=== PATIENT | female | born 1955 | race Caucasian/White ===

== ENCOUNTER 2020-01-14 09:10 | Emergency (ER) | payer BC, SELFPAY ==
[2020-01-14 09:23] VITALS: BP 164/83; PULSE 76; RESP 16; TEMP 37.1; O2SAT 96
--- NOTE | 2020-01-14 09:30 | ED.GENADULT ---
HPI - General Adult General Chief complaint: Skin/Abscess/Foreign Body Stated complaint: Toe discoloration Time Seen by Provider: 01/14/20 09:31 Source: patient and RN notes reviewed Mode of arrival: ambulatory Limitations: no limitations History of Present Illness HPI narrative: 64-year-old female presents with complaints of left 2nd toenail discoloration for the past 2 months. No treatment. Noemy says she initially did not seek care because she believed she stubbed her toe. Symptoms increased yesterday when she noticed the 3rd toenail had discoloration to the toenail also. No drainage or pain. No pain with weight bearing. No numbness, tingling, or loss of mobility. No exacerbating factors that she can recall. Denies inability to bear weight. Denies suspect foreign body. Postmenopausal. Remains active. The patient reports she have not been diagnosed with COVID-19. The patient reports she is not waiting for the results of a COVID-19 lab test. The patient reports she do not have fever, chills, weakness, fatigue, or myalgia. The patient reports she do not have a new or worsening cough or shortness of breath. Denies chest pain. The patient reports she do not have any rhinorrhea, congestion, sore throat, nausea, vomiting, abdominal pain, and diarrhea. Tolerating po intake well. Denies recent traveling. Denies concerns for COVID-19 or exposures been home with limited outdoor exposure except for essential household needs, work, and return home. At this time, patient is not suspected of having COVID-19. Some parts of this dictation were generated by voice recognition software and may contain typographical and/or grammatical inaccuracies. Related Data Home Medications Medication Instructions Recorded Confirmed atorvastatin [Lipitor] 20 mg PO DAILY 01/14/20 01/14/20 metoprolol succinate [Toprol XL] 25 mg PO DAILY 01/14/20 01/14/20 omeprazole magnesium [Prilosec OTC] 20 mg PO EVERY OTHER DAY 01/14/20 01/14/20 Allergies Allergy/AdvReac Type Severity Reaction Status Date / Time Penicillins Allergy Severe THROAT Verified 01/14/20 09:28 GAMALIEL Review of Systems Review of Systems: Narrative: CONSTITUTIONAL: Denies fever, chills, sweats. EYES: Denies visual changes, redness, discharge. ENT: Denies rhinorrhea, congestion, sore throat, otalgia. CARDIOVASCULAR: Denies chest pain, palpitations, edema. RESPIRATORY: Denies dyspnea, wheezing, cough. GASTROINTESTINAL: Denies abdominal pain, nausea, vomiting, diarrhea. GENITOURINARY: Denies dysuria, hematuria, abnormal discharge. SKIN: Denies rash or itching. MUSCULOSKELETAL: Denies acute back pain or myalgia. Complains of left 2nd and 3rd toenail discoloration. NEUROLOGIC: Denies numbness or focal weakness. PSYCHIATRIC: Denies anxiety or depression. All systems reviewed & are unremarkable except as noted in HPI and below. [facility] Past Medical History Medical History (Updated 01/15/20 @ 00:00 by Austin Daeloy) delivery delivered History of gastroesophageal reflux (GERD) Hypercholesteremia Hypertension Postmenopausal Surgical History Surgical History (Updated 01/14/20 @ 09:52 by GRETA Pena) H/O section Family History Family History (Updated 01/14/20 @ 09:52 by GRETA Pena) Father , [place] at 79 No problems noted. Mother Diabetes mellitus, Onset Age: 80 Social History Social History (Updated 01/14/20 @ 09:53 by GRETA Pena) Smoking status: Never smoker Second hand tobacco smoke exposure: No Alcohol intake: never Substance use: never Occupation/Education: occupation Gender identity (if verbalized by the patient): Female Comments At time of signature, agree with nurse past medical, surgical, social, and family history. There is no relevant family history pertinent to the presenting complaint. Exam Narrative: Exam Narrative: GENERAL: This is a well-nourished, well-dev
== END 2020-01-14 09:53 | disposition home or self-care (01) ==
PROVIDERS: Emergency Provider Nurse Practitioner Family
DX: B35.1 Tinea unguium (principal)
CPT/HCPCS: 99213; G0463

== ENCOUNTER 2021-01-26 01:22 | Emergency (ER) | payer BC, SELFPAY ==
--- NOTE | 2021-01-26 01:34 | ED.SKABFB ---
HPI - Skin/Abscess/Foreign Bdy General Chief complaint: Skin/Abscess/Foreign Body Stated complaint: abdominal rash Time Seen by Provider: 01/26/21 01:34 History of Present Illness HPI narrative: Pruritic rash on abdomen and extremities since earlier in the evening. Started while she was out at a bar having a drink. She is not aware of any new exposures. She has never had this type of rash before. She has not tried anything to treat the rash. Denies any additional symptoms. Related Data Home Medications Medication Instructions Recorded Confirmed atorvastatin [Lipitor] 20 mg PO DAILY 01/14/20 01/14/20 metoprolol succinate [Toprol XL] 25 mg PO DAILY 01/14/20 01/14/20 omeprazole magnesium [Prilosec OTC] 20 mg PO EVERY OTHER DAY 01/14/20 01/14/20 Allergies Allergy/AdvReac Type Severity Reaction Status Date / Time Penicillins Allergy Severe THROAT Verified 01/26/21 01:42 SWELLS Review of Systems Review of Systems: All systems reviewed & are unremarkable except as noted in HPI and below Constitutional: Constitutional: Denies fever(s) ENT: Denies dizziness Cardiovascular: Cardiovascular: Denies chest pain Respiratory: Respiratory: Denies dyspnea Gastrointestinal: Gastrointestinal: Denies nausea Neurologic: Denies dizziness and Denies weakness Allergic/Immunologic: Allergic/Immunologic: Denies lip swelling, Denies throat swelling and Denies tongue swelling PMFSH Past Medical History Medical History delivery delivered History of gastroesophageal reflux (GERD) Hypercholesteremia Hypertension Postmenopausal Surgical History Surgical History H/O section Family History Family History Father , [place] at 79 No problems noted. Mother Diabetes mellitus, Onset Age: 80 Social History Social History Smoking status: Never smoker Second hand tobacco smoke exposure: No Alcohol intake: never Substance use: never Gender identity (if verbalized by the patient): Female Exam Const: General: healthy appearing, no acute distress and alert Orientation/consciousness: patient oriented x3 HENMT: Head: normal to inspection Neck: Neck: normal visual inspection Resp: Effort & Inspection: normal respiratory effort Auscultation: clear to auscultation bilaterally, no rales, no rhonchi and no wheezes Cardio: Jugular venous distension: no JVD Rate: regular rate Rhythm: regular rhythm Heart sounds: no murmurs Skin: Other: scattered hives to trunk and extremities Neuro: General: patient oriented x3 and moves all extremities Speech: normal speech Extrem: General: normal to inspection Psych: Appearance: well kempt Affect: normal affect Course Vital Signs Vital signs: Vital Signs Temperature 36.7 C 01/26/21 01:40 Pulse Rate 69 01/26/21 01:40 Respiratory Rate 18 01/26/21 01:40 Blood Pressure 124/96 H 01/26/21 01:40 Pulse Oximetry 100 01/26/21 01:40 Temperature 36.7 C 01/26/21 01:40 Pulse Rate 69 01/26/21 01:40 Respiratory Rate 18 01/26/21 01:40 Blood Pressure 124/96 H 01/26/21 01:40 Pulse Oximetry 100 01/26/21 01:40 MDM - Skin/Abscess/Foreign Bdy MDM Narrative Medical decision making narrative: She has mild urticaria of unclear cause. Differential Diagnosis Differential diagnosis: Likely urticaria and other Medical Records Attestation: I reviewed the patient's medical records. Discharge Plan Discharge Clinical Impression: Urticaria Patient Disposition: Home, Self-Care Condition: Stable Instructions: Urticaria (ED) Prescriptions: No Action atorvastatin [Lipitor] 20 mg Tablet 20 mg PO DAILY RF: 0 metoprolol succinate [Toprol XL] 25 mg Tablet Extended Release 24 Hr 25 mg P
[2021-01-26 01:40] VITALS: BP 124/96; PULSE 69; RESP 18; TEMP 36.7; O2SAT 100
[2021-01-26] MEDS: HYDROCORTISONE 1% 30 GM CREAM 1 APPLIC TOPICAL (02:56)
== END 2021-01-26 02:56 | disposition home or self-care (01) ==
LOC: ANHED 02:10
PROVIDERS: Emergency Provider Emergency Medicine; PCP Internal Medicine
DX: L50.9 Urticaria, unspecified (principal); K21.9 Gastro-esophageal reflux disease without esophagitis; E78.00 Pure hypercholesterolemia, unspecified; I10 Essential (primary) hypertension
CPT/HCPCS: 99283; A9270

== ENCOUNTER 2022-12-21 12:45 | Emergency (ER) | payer BC, SELFPAY ==
[2022-12-21 12:54] VITALS: BP 121/74; PULSE 80; RESP 12; TEMP 36.7; O2SAT 100
--- NOTE | 2022-12-21 13:05 | ED.SKABFB ---
HPI - Skin/Abscess/Foreign Bdy General Chief complaint: Skin/Abscess/Foreign Body Stated complaint: Rash Time Seen by Provider: 12/21/22 13:00 Source: patient Mode of arrival: ambulatory Limitations: no limitations History of Present Illness HPI narrative: Noemy is a 67-year-old female patient presenting to clinic today with complaints of a rash that has been going on for over a week. Reports that the rash is spreading. States that the rash started after cleaning up some brush near the fence line at home. [place] Related Data Home Medications Medication Instructions Recorded Confirmed atorvastatin 20 mg tablet (Lipitor) 20 mg PO DAILY 01/14/20 12/21/22 metoprolol succinate 25 mg 25 mg PO DAILY 01/14/20 12/21/22 tablet,extended release 24 hr (Toprol XL) omeprazole magnesium 20 mg 20 mg PO EVERY OTHER DAY 01/14/20 12/21/22 tablet,delayed release (Prilosec OTC) Allergies Allergy/AdvReac Type Severity Reaction Status Date / Time Penicillins Allergy Severe THROAT Verified 12/21/22 12:48 SWELLS Review of Systems Review of Systems: Pertinent positives per HPI. Patient denies any fever, chills, headache, visual changes, dizziness, cough, shortness of breath, chest pain, palpitations, nausea, vomiting, diarrhea, constipation, abdominal pain, or any urinary issues. [facility] Past Medical History Medical History delivery delivered History of gastroesophageal reflux (GERD) Hypercholesteremia Hypertension Postmenopausal Surgical History Surgical History H/O section Family History Family History Father , [place] at 79 No problems noted. Mother Diabetes mellitus, Onset Age: 80 Social History Social History Smoking status: Never smoker Second hand tobacco smoke exposure: No Alcohol intake: never Substance use: never Occupation/Education: occupation Gender identity (if verbalized by the patient): Female Comments At the time of my signature, I reviewed and agree with the nursing past medical, surgical, social, and family history. There is no relevant family history pertinent to the patient complaint. Exam Narrative: General: Well-developed, well nourished, in no apparent distress Head: Normocephalic, atraumatic. Cardio: Regular rate and rhythm, s1 and s2 normal, no murmur appreciated. Resp: Clear to auscultation bilaterally, no rhonchi, rales, wheezing or rubs. Integumentary: [place], warm, and dry, red, raised, blistering itchy rash to the bilateral forearms, abdomen, and inner thighs. Course Course Emergency Course: Portions of this record may have been created with voice recognition software. Level of Care: Express Care Visit Vital Signs Vital signs: Vital Signs Temperature 36.7 C 12/21/22 12:54 Pulse Rate 80 12/21/22 12:54 Respiratory Rate 12 12/21/22 12:54 Blood Pressure 121/74 12/21/22 12:54 Pulse Oximetry 100 12/21/22 12:54 Oxygen Delivery Room Air 12/21/22 12:54 Temperature 36.7 C 12/21/22 12:54 Pulse Rate 80 12/21/22 12:54 Respiratory Rate 12 12/21/22 12:54 Blood Pressure 121/74 12/21/22 12:54 Pulse Oximetry 100 12/21/22 12:54 Oxygen Delivery Room Air 12/21/22 12:54 Vital signs reviewed MDM - Skin/Abscess/Foreign Bdy MDM Narrative Medical decision making narrative: At the time of visit patient is resting comfortably on the exam table. I suspect patient has contact dermatitis due to plants/poison cecy. Will send in prescription for some triamcinolone cream and prednisone. Supportive measures were discussed with the patient she voiced understanding discharge instructions agrees to treatment plan. Differential Diag
== END 2022-12-21 13:18 | disposition home or self-care (01) ==
PROVIDERS: Emergency Provider Nurse Practitioner Family
DX: L25.5 Unspecified contact dermatitis due to plants, except food (principal); K21.9 Gastro-esophageal reflux disease without esophagitis; E78.00 Pure hypercholesterolemia, unspecified; I10 Essential (primary) hypertension
CPT/HCPCS: 99213; G0463

== ENCOUNTER 2023-01-01 06:15 | Emergency (ER) | payer BC, SELFPAY ==
--- NOTE | ~2023-01-01 | CT_ITS ---
EXAMINATION: CT facial & cervical spine wo DATE: 01/01/2023 06:57 INDICATION: Status post fall. Head and neck trauma. TECHNIQUE: Computed tomography (CT) of the maxillofacial region and cervical spine was performed with out intravenous contrast. The dose-length product was 380.85 mGy-cm. Automated exposure control and i terative reconstruction technique were employed. COMPARISON: None FINDINGS: MAXILLOFACIAL CT: Small right frontal scalp hematoma. No underlying skull fracture. There are displaced bilateral nasal fractures which appear comminuted. There is fracture of the nasal septum. No orbital abnormality. Mi nimal mucosal thickening of the right maxillary sinus. Hypertrophy of the right inferior turbinate. M andible is intact. Zygomatic arches and pterygoid plates are normal. Mastoids are pneumatized. Tempor al mandibular joints are symmetric. CERVICAL SPINE CT: Straightening of cervical lordosis. There is disc narrowing at C4-5, C5-6, C6-7 and C7-T1. There is d egenerative anterolisthesis at C3-4 and C7-T1 secondary to facet hypertrophy. Odontoid process is nor mal. Craniovertebral junction is normal. There is moderate multilevel uncinate hypertrophy. There is mild dextrocurvature of the cervical spine. IMPRESSION: 1. Comminuted displaced fractures of the nasal septum and bilateral nasal bones. 2: No acute abnormality the cervical spine. Moderate-severe cervical spondylosis. Reviewed, dictated and finalized at location [] IMPRESSION: 1. Comminuted displaced fractures of the nasal septum and bilateral nasal bones . 2: No acute abnormality the cervical spine. Moderate-severe cervical spondylosi s.
--- NOTE | ~2023-01-01 | CT_ITS ---
EXAMINATION: CT BRAIN W/O DATE: 01/01/2023 06:55 INDICATION: Headache TECHNIQUE: Computed tomography (CT) of the head was performed without intravenous contrast. The dose- length product was 605.33 mGy-cm. Automated exposure control and iterative reconstruction technique w ere employed. COMPARISON: No prior studies for comparison. FINDINGS: Normal brain parenchymal volume for age. Normal molina-white differentiation. No acute intrac ranial hemorrhage, infarction, mass or mass effect. There are scattered mild periventricular and subc ortical white matter changes, most likely related to small vessel ischemic disease (microangiopathy). No ventriculomegaly or midline shift. Midline sagittal images demonstrate a normal corpus callosum, c raniovertebral junction and sella turcica. Basilar cisterns are patent. There is a small right fronta l scalp hematoma. Paranasal sinuses and mastoids are pneumatized. No depressed skull fractures. IMPRESSION: 1. No acute intracranial abnormality. Reviewed, dictated and finalized at location []
--- NOTE | 2023-01-01 06:19 | ED.FALL ---
HPI - Fall General Chief Complaint: Fall <Randee Swain MD - Last Filed: 01/01/23 07:19> Stated Complaint: glf, nose deformity <Randee Swain MD - Last Filed: 01/01/23 07:19> Time Seen by Provider: 01/01/23 06:19 <Randee Swain MD - Last Filed: 01/01/23 07:19> Source: patient <Randee Swain MD - Last Filed: 01/01/23 07:19> Mode of arrival: EMS <Randee Swain MD - Last Filed: 01/01/23 07:19> Limitations: no limitations <Randee Swain MD - Last Filed: 01/01/23 07:19> History of Present Illness HPI Narrative: Patient is a 67-year-old female presenting to the emergency department for evaluation of facial trauma following a ground-level fall. Patient states that she tripped while in the morning walk, causing her to fall, her face hitting the pavement. Patient denies loss of conscious. Patient reports significant amount of nosebleeding, for which EMS was called. EMS placed a nasal clamp over the patient's nose and transported here for evaluation. Patient denies anticoagulant use. She reports mild headache without vision changes. No nausea or vomiting. Patient reports improvement of the nosebleed with the nasal clamp. She denies focal weakness or numbness. She reports nasal pain and swelling. Patient is up-to-date on a tetanus within the last 5 to 10 years. She reports abrasions to both knees without significant knee pain. Patient was ambulatory on scene. <Randee Swain MD - Last Filed: 01/01/23 07:19> Related Data Home Medications: Home Medications Medication Instructions Recorded Confirmed atorvastatin 20 mg tablet (Lipitor) 20 mg PO DAILY 01/14/20 12/21/22 metoprolol succinate 25 mg 25 mg PO DAILY 01/14/20 12/21/22 tablet,extended release 24 hr (Toprol XL) omeprazole magnesium 20 mg 20 mg PO EVERY OTHER DAY 01/14/20 12/21/22 tablet,delayed release (Prilosec OTC) <Randee Swain MD - Last Filed: 01/01/23 07:19> Allergies/Adverse Reactions: Allergies Allergy/AdvReac Type Severity Reaction Status Date / Time Penicillins Allergy Severe THROAT Verified 12/21/22 12:48 SWELLS <Randee Swain MD - Last Filed: 01/01/23 07:19> Review of Systems Review of Systems: CONSTITUTIONAL: Denies fever, chills, or sweats. EYES: Denies visual changes, redness, or discharge. ENT: Denies rhinorrhea, congestion, sore throat, or otalgia. Reports nose pain and epistaxis. CARDIOVASCULAR: Denies chest pain, palpitations, or edema. RESPIRATORY: Denies cough or dyspnea. GASTROINTESTINAL: Denies abdominal pain, nausea, vomiting, or diarrhea. GENITOURINARY: Denies dysuria or hematuria. SKIN: Denies rash or itching. MUSCULOSKELETAL: Denies back pain, joint pain, or myalgia. NEUROLOGIC: Denies headache, numbness, or weakness. <Randee Swain MD - Last Filed: 01/01/23 07:19> [facility] Past Medical History Medical History: Medical History delivery delivered History of gastroesophageal reflux (GERD) Hypercholesteremia Hypertension Postmenopausal <Randee Swain MD - Last Filed: 01/01/23 07:19> Surgical History Surgical History: Surgical History H/O section <Randee Swain MD - Last Filed: 01/01/23 07:19> Family History Family History: Family History Father , [place] at 79 No problems noted. Mother Diabetes mellitus, Onset Age: 80 <Randee Swain MD - Last Filed: 01/01/23 07:19> Social History Social History: Social History Smoking status: Never smoker Second hand tobacco smoke exposure: No Alcohol intake: never Substance use: never Occupation/Education: occupation Gender identity (if verbalized by the patient): Female <Randee Cronin
[2023-01-01 06:20] VITALS: BP 140/104; PULSE 81; RESP 20; TEMP 36.3; O2SAT 97
--- NOTE | 2023-01-01 06:36 | PC.NURSE ---
Abrasions to right and left knee cleansed with wound booth cleaner. Antibiotic ointment applied. Telfa applied to right knee and wrapped with feli wrap. Bandaid applied to left knee.
[2023-01-01] MEDS: OXYMETAZOLINE HCL 0.05% NAS 15 ML BTL (*BKC) 1 SPRAY (06:38)
--- NOTE | 2023-01-01 06:38 | PC.NURSE ---
Ice pack given to pt to apply to hematoma on forehead.
--- NOTE | 2023-01-01 07:08 | PC.NURSE ---
Nurse report given to Cristy FRANK and Sharon FRANK
[2023-01-01 08:38] VITALS: BP 134/96; PULSE 60; RESP 18; O2SAT 100
== END 2023-01-01 08:39 | disposition home or self-care (01) ==
PROVIDERS: Emergency Provider Emergency Medicine
DX: S02.2XXA Fracture of nasal bones, initial encounter for closed fracture (principal); S80.212A Abrasion, left knee, initial encounter; S80.211A Abrasion, right knee, initial encounter; I10 Essential (primary) hypertension; E78.00 Pure hypercholesterolemia, unspecified; K21.9 Gastro-esophageal reflux disease without esophagitis; W01.0XXA Fall on same level from slipping, tripping and stumbling without subsequent striking against object, initial encounter
CPT/HCPCS: 70450; 70486; 72125; 99284; A9270

== ENCOUNTER 2023-01-02 11:24 | Outpatient (CLI) | payer BC, SELFPAY ==
--- NOTE | 2023-01-02 11:40 | ECG_ITS ---
Measurements Intervals [place] Rate: 60 P: 18 CO: 179 QRS: -2 QRSD: 90 T: 0 QT: 395 QTc: 397 Interpretive Statements SINUS RHYTHM MODERATE VOLTAGE CRITERIA FOR LVH, CONSIDER NORMAL VARIANT [MEETS CRITERIA IN ONE OF: R(aVL), S(V1), R(V5), R(V5/V6)+S(V1)] POOR R WAVE PROGRESSION COMPARED TO ECG 05/08/2019 21:41:52 NO SIGNIFICANT CHANGES Electronically Signed On 01-02-2023 13:39:23 CDT by Lora Stallings M.D.
== END 2023-01-02 11:25 | disposition home or self-care (01) ==
LOC: ANHSURGERY 11:31
PROVIDERS: Visit Provider Otolaryngology
DX: I10 Essential (primary) hypertension (principal); Z01.818 Encounter for other preprocedural examination
CPT/HCPCS: 93005

== ENCOUNTER 2023-01-06 01:16 | Day surgery (SDC) | payer BC, SELFPAY ==
--- NOTE | 2023-01-02 10:04 | PC.NURSE ---
Report to the Outpatient Waiting Room, entrance under the green pavilion located off [facility], at time _1000 on date __01/06/23 . Planned Procedure Time: _1200 . Time changes happen often and if your time is changed the preop area will call you the afternoon before. - You and your visitor will be asked to self-screen and do not enter if you have any COVID symptoms. - A mask is optional within the hospital at this time. Patients may have clear liquids (water, carbonated beverages, clear teas, apple juice) until 3 hours prior to surgery with a maximum of 20 ounces. - No food from midnight until time of surgery - Infants may have breast milk until 4 hours before surgery, infant formula 6 hours prior to surgery. - Children will be allowed to drink immediately following surgery. If applicable, please bring a bottle or sippy cup to assist with drinking. Juice, water, soda, and popsicles are readily available. For infants on formula, please bring formula the day of surgery. Pacifiers are allowed. Take the following medications with a SIP of water the morning of surgery: METOPROLOL DO NOT STOP ANY OF YOUR OTHER PRESCRIPTION MEDICATIONS PRIOR TO SURGERY ?EXCEPT THE FOLLOWING Medications to discontinue per physician ALL VITAMINS/SUPPLEMENTS 3 DAYS PRE OP.LAST DOSE 01/02/23 Please no make-up, nail sami, hairspray, perfume, deodorant, or body powder the day of surgery. No jewelry (including any body piercings) or valuables the day of surgery, leave them at home. Please take a shower or bath the night before, or the morning of, surgery with an antibacterial soap. Wear comfortable, loose fitting clothing. Children are encouraged to wear pajamas. - Jewelry must be removed prior to entering the operating room. Rings and piercings that are not removed may be cut off. - The hospital will not accept responsibility for valuables. - Please leave all valuables, including medications, at home the day of surgery. If you are going home after surgery, a licensed interstate bus driver must drive you home. - NO public transportation without another adult if you receive anesthesia. - We recommend that an adult stay with you for 24 hours following discharge. - We also recommend that you do not drive, make important decision, drink alcoholic beverages, or take any drugs that were not prescribed by your health care provider for at least 24 hours after your discharge time. For Pediatric surgeries, we recommend two adults accompany the child home. Follow any additional instructions given to you from your surgeon. If you or anyone in your household have experienced Covid symptoms in the past week, please notify your surgeon or the nurse liaison at the phone number below for possible testing. Telephone instructions given to _PATIENT and asked if any additional questions and then verbalized understanding. Patient advised to call surgeon office or pre surgery nurse liaison [phone] if any additional questions.
[2023-01-02 10:11] VITALS: BMI 27.4
[2023-01-06] VITALS (9 sets, daily range): BP systolic 137–179; BP diastolic 73–113; PULSE 66–78; RESP 10–16; TEMP 36.2–37.6; O2SAT 99–100
--- NOTE | 2023-01-06 07:18 | P.HP_ITS ---
H&P: HPI History of Present Illness Date/Time: 01/06/23 07:18 Chief Complaint: Nasal septal nasal fracture Narrative: planned procedure Review of Systems Review of Systems: All systems reviewed & are unremarkable except as noted in HPI and below [facility] [place] Past Medical History Medical History delivery delivered History of gastroesophageal reflux (GERD) Hypercholesteremia Hypertension Postmenopausal Surgical History Surgical History H/O section Family History Family History Father , [place] at 79 No problems noted. Mother Diabetes mellitus, Onset Age: 80 Social History Social History Smoking status: Never smoker Second hand tobacco smoke exposure: No Alcohol intake: never Substance use: never Living arrangements: alone Occupation/Education: occupation Gender identity (if verbalized by the patient): Female Spiritual care concerns: No Meds Home Medications and Allergies Home Medications Medication Instructions Recorded Confirmed Type atorvastatin 20 mg tablet (Lipitor) 20 mg PO HS 01/14/20 01/02/23 History metoprolol succinate 25 mg 25 mg PO DAILY 01/14/20 01/02/23 History tablet,extended release 24 hr (Toprol XL) omeprazole magnesium 20 mg 20 mg PO EVERY OTHER DAY 01/14/20 01/02/23 History tablet,delayed release (Prilosec OTC) cholecalciferol (vitamin D3) 50 50 mcg PO DAILY 01/02/23 01/02/23 History mcg (2,000 unit) tablet multivitamin 1 tablet PO DAILY 01/02/23 01/02/23 History Allergies Allergy/AdvReac Type Severity Reaction Status Date / Time Penicillins Allergy Severe THROAT Verified 01/02/23 09:55 SWELLS Exam Narrative: a dorsal nasal septal deviation nasal septal deviation as well. Assessment and Plan Assessment and plan (1) Fracture of nasal bone: Code(s): S02.2XXA - Fracture of nasal bones, initial encounter for closed fracture Status: Acute Assessment and Plan: Plan operating room closed reduction nasal septal fracture closed reduction nasal bone fracture. Risks were discussed including change in vision telecanthus damage to vision total blindness. Failure to resolve in a cosmetically acceptable way. Failure to resolve nasal obstruction. Patient voiced understanding and agreed. (2) Closed fracture of nasal septum: Code(s): S02.2XXA - Fracture of nasal bones, initial encounter for closed fracture Status: Acute
--- NOTE | 2023-01-06 07:20 | WPDHPUPDATE1 ---
History and Physical Update Update Date/Time: 01/06/23 07:20 History and Physical has been reviewed, including an updated exam of the patient. There are NO changes in the patient's condition. Risks, benefits, and alternatives have been discussed and questions answered. Patient agrees to proceed with procedure.
--- NOTE | 2023-01-06 09:15 | WPDANESEPPF ---
Anes - Initial Pre Proc Eval Procedure: Operation Date: 01/06/23 12:00 Proposed Procedures p Closed Reduction Septal Fracture and Nasal Fracture - Abdirahman Arango MD Date/Time: 01/06/23 09:15 Surgeon: Abdirahman Arango MD Pre Op Diagnosis: Nasal Fx Patient Data Age: 67 Gender: F Height: 1.63 m Weight: 72.6 kg Allergies Allergy/AdvReac Type Severity Reaction Status Date / Time Penicillins Allergy Severe THROAT Verified 01/06/23 10:11 SWELLS Home Medications Medication Instructions Recorded Confirmed Type atorvastatin 20 mg tablet (Lipitor) 20 mg PO HS 01/14/20 01/06/23 History metoprolol succinate 25 mg 25 mg PO DAILY 01/14/20 01/06/23 History tablet,extended release 24 hr (Toprol XL) omeprazole magnesium 20 mg 20 mg PO EVERY OTHER DAY 01/14/20 01/06/23 History tablet,delayed release (Prilosec OTC) cholecalciferol (vitamin D3) 50 50 mcg PO DAILY 01/02/23 01/06/23 History mcg (2,000 unit) tablet multivitamin 1 tablet PO DAILY 01/02/23 01/06/23 History Patient hx anesthesia problems: none Family hx anesthesia problems: none Results Review: All pre-operative results and documents have been reviewed as part of the pre-operative evaluation. [facility] Past Medical History Medical History (Updated 01/06/23 @ 09:15 by Hardy Powers DO) delivery delivered Fatty liver History of gastroesophageal reflux (GERD) Hypercholesteremia Hypertension Postmenopausal Surgical History Surgical History H/O section Family History Family History Father , [place] at 79 No problems noted. Mother Diabetes mellitus, Onset Age: 80 Social History Social History Smoking status: Never smoker Second hand tobacco smoke exposure: No Alcohol intake: never Substance use: never Living arrangements: alone Occupation/Education: occupation Gender identity (if verbalized by the patient): Female Spiritual care concerns: No Anes - Eval Final PreProcedure Day of Procedure 01/06/23 09:15 Patient weight: overweight Heart: regular rate and rhythm Lungs: clear to auscultation Airway: Mallampati scale class II Neurological: alert and oriented Last oral intake: >/= 8 hours ASA classification: III Emergent: no Anesthetic plan: proceed Anesthesia type and monitoring: general ETT and standard monitoring Results Review: All pre-operative results and documents have been reviewed as part of the pre-operative evaluation. Informed Consent: The patient's anesthetic plan and its attendant risks and benefits were discussed with the patient/family/POA. Questions were solicited and answers provided to the satisfaction of the patient/family/POA.
[2023-01-06] MEDS: ACETAMINOPHEN 500 MG TABLET 1000 MG PO (10:20)
[2023-01-06] MEDS: LACTATED RINGERS 1,000 ML 30 ML IV CONT (10:30)
[2023-01-06] MEDS: ceFAZolin 2 GM/D5W 50 ML 2 GM/50 ML BAG IVPB (12:00)
[2023-01-06] MEDS: OXYMETAZOLINE HCL 0.05% NAS 15 ML BTL (*BKC) 1 SPRAY NASAL (12:15)
--- NOTE | 2023-01-06 13:18 | SUR.PHASEI ---
1310: Simple mask removed.
--- NOTE | 2023-01-06 13:36 | W.PM.PROC2 ---
Procedure Note - Detailed Date of Procedure 01/06/23 Pre-op Diagnosis Nasal Fx Post-op Diagnosis Same Procedure Performed closedseptal fracture closed reduction nasal bone fracture Surgeon Abdirahman Arango MD Anesthesia General Indications see above Findings comminuted fractures of the snot not of the septum of the nasal bone septum fracture to the left much more patent airway AK much straighter septum and better reduced nasal bones following procedure. Description of Procedure Patient identified consent verified in the preoperative holding area patient brought to the operating room. Time-out performed. General anesthesia induced endotracheal tube secured the airway. Patient prepped draped position 2nd time-out performed after confirmation of the procedure. Afrin-soaked pledgets placed for 5 minutes then removed. Nasal septum fracture to the patient's right using a [place] elevator. Nasal bones then outfractured bilaterally more so on the left to give it a perfect cosmetic appearance. Gelfoam placed deep to the nasal bones to stent them out words. Brown tape placed followed by Aquaplast splint followed by more brown tape. Patient tolerated the procedure well. Total blood loss about 10 cc. No complications. Patient taken to PACU. Estimated Blood Loss -10.0 Drains No Packing Yes (surgifoam) Pathology None sent Complications No immediate complications Condition Stable Disposition PACU [facility] Billing Surgery - Charge Forward: Surgery Billing
[2023-01-06] MEDS: IBUPROFEN 400 MG TABLET 800 MG PO (14:38)
== END 2023-01-06 15:23 | disposition home or self-care (01) ==
PROVIDERS: Visit Provider Otolaryngology
PROC: 0NSBXZZ Reposition Nasal Bone, External Approach (ICD-10-PCS; CPT 21315; principal; 2023-01-06 12:00)
DX: S02.2XXA Fracture of nasal bones, initial encounter for closed fracture (principal); I10 Essential (primary) hypertension; E78.00 Pure hypercholesterolemia, unspecified; K21.9 Gastro-esophageal reflux disease without esophagitis; W01.0XXA Fall on same level from slipping, tripping and stumbling without subsequent striking against object, initial encounter
CPT/HCPCS: 21320; 93005; A9270; J0330; J0690; J1100; J1170; J2250; J2704; J3010; J7120

== ENCOUNTER 2023-09-26 20:41 | Emergency (ER) | payer MEDICARE, SELFPAY ==
[2023-09-26] VITALS (13 sets, daily range): BP systolic 120–145; BP diastolic 74–94; PULSE 65–80; RESP 12–19; TEMP 35.8–36.2; O2SAT 99–100
--- NOTE | 2023-09-26 20:57 | ECG_ITS ---
Measurements Intervals [place] Rate: 67 P: 32 WV: 209 QRS: -3 QRSD: 90 T: -1 QT: 408 QTc: 433 Interpretive Statements SINUS RHYTHM VOLTAGE CRITERIA FOR LVH BORDERLINE R WAVE PROGRESSION, ANTERIOR LEADS BORDERLINE T WAVE ABNORMALITY INFERIOR LEADS BORDERLINE ECG COMPARED TO ECG 01/02/2023 11:47:41 NO SIGNIFICANT CHANGES Electronically Signed On 09-27-2023 7:47:13 CDT by Nirmal Montero D.O.
[2023-09-26 21:09] LABS: Basophils Percent Auto 0.4 % (0.2-1.2); Eosinophils Absolute Auto 0.1 K/mm3 (0-0.3); Eosinophils Percent Auto 0.5 % (0-4.4); Hematocrit 43.9 % (37.0-47.0); Hemoglobin 14.2 g/dL (12.0-15.0); Immature Granulocyte Absolute 0.04 K/mm3 (0.00-0.031); Immature Granulocyte Percent A 0.4 % (0-0.5); Lymphocytes Absolute Auto 2.05 K/mm3 (0.9-3.2); Lymphocytes Percent Auto 20.5 % (18.3-44.2); Mean Corpuscular HGB Conc 32.3 g/dl (32-36); Mean Corpuscular Hemoglobin 30.5 pg (26-34); Mean Corpuscular Volume 94.4 fl (80-100); Mean Platelet Volume 10.5 fl (7.4-10.4); Monocytes Absolute Auto 0.6 K/mm3 (0.1-0.6); Neutrophils Absolute Auto 7.2 K/mm3 (1.3-6.7); Neutrophils Percent Auto 72.2 % (45.5-73.1); Platelet Count Result 182 k/mm3 (150-375); Red Blood Count 4.65 M/mm3 (4.2-5.4); Red Cell Distribution Width 13.2 % (11.5-14.5)
[2023-09-26 21:14] LABS: Appearance Urine Cloudy (Clear); Bacteria Urine None Seen /hpf; Bilirubin Urine Negative (Negative); Blood Urine 1+ (Negative); Color Urine Yellow (Yellow); Glucose Urine UA Negative (Negative); Ketones Urine Trace mg/dL (Negative); Leukocyte Esterase Ur Negative LEU/UL (Negative); Nitrate Urine Negative (Negative); Non Pathogenic Casts 0-2; Protein Urine Negative (Negative); Specific Grav Ur 1.026 (1.001-1.035); Squamous Epithelial Cell Urine None Seen /hpf (Few); WBC Urine 0-5 /hpf (0-3); pH Urine 5.5 (5.0-9.0)
[2023-09-26 21:15] LABS: Add Urine Microscopic? YES
[2023-09-26 21:20] LABS: Alanine Aminotransferase 46 U/L (6-35); Albumin Level 4.4 g/dL (3.5-5.1); Alkaline Phosphatase 111 U/L (38-126); Anion Gap 6 mmol/L (8-16); Aspartate Amino Transferase 47 U/L (14-36); Bilirubin,Total 0.5 mg/dL (0.2-1.3); Blood Urea Nitrogen 23 mg/dL (7-17); Calcium 9.3 mg/dL (8.4-10.2); Carbon Dioxide 27 mmol/L (22-30); Chloride 107 mmol/L (98-107); Estimated CRCL calculation 53 ml/min; Estimated Glomerular Filt Rate > 60; Glucose 109 mg/dL (65-110); Lipase 88 U/L (23-300); Potassium 3.5 mmol/L (3.4-5.0); Sodium 140 mmol/L (137-145)
[2023-09-26] MEDS: SODIUM CHLORIDE 0.9% IV 1,000 ML 999 ML IV CONT (21:20)
[2023-09-26] MEDS: ONDANSETRON INJ 4 MG/2 ML VIAL IV PUSH (21:20)
--- NOTE | 2023-09-26 22:29 | ED.GENADULT ---
HPI - General Adult General Chief complaint: Abdominal Pain Stated complaint: n/v abd pain Time Seen by Provider: 09/26/23 21:02 History of Present Illness HPI narrative: Patient is 67-year-old female who presents emergency department with chief complaint of nausea vomiting and diarrhea. The patient reports that she had eaten about 4:00 p.m. and then started having multiple bouts of diarrhea and reports that she had an episode of vomiting. Patient states that she has a cramping feeling in her abdomen Related Data Home Medications Medication Instructions Recorded Confirmed atorvastatin 20 mg tablet (Lipitor) 20 mg PO HS 01/14/20 01/29/23 metoprolol succinate 25 mg 25 mg PO DAILY 01/14/20 01/29/23 tablet,extended release 24 hr (Toprol XL) omeprazole magnesium 20 mg 20 mg PO EVERY OTHER DAY 01/14/20 01/29/23 tablet,delayed release (Prilosec OTC) cholecalciferol (vitamin D3) 50 50 mcg PO DAILY 01/02/23 01/29/23 mcg (2,000 unit) tablet multivitamin 1 tablet PO DAILY 01/02/23 01/29/23 Allergies Allergy/AdvReac Type Severity Reaction Status Date / Time Penicillins Allergy Severe THROAT Verified 01/29/23 13:23 GAMALIEL Review of Systems Review of Systems: A 10 system review of systems was completed on the patient and is negative except for what is stated in the HPI. Nursing and ancillary documentation was reviewed. [facility] Past Medical History Medical History delivery delivered Fatty liver History of gastroesophageal reflux (GERD) Hypercholesteremia Hypertension Postmenopausal Surgical History Surgical History H/O section Family History Family History Father , [place] at 79 No problems noted. Mother Diabetes mellitus, Onset Age: 80 Social History Social History Smoking status: Never smoker Second hand tobacco smoke exposure: No Alcohol intake: never Substance use: never Lack of Transportation: No Lack of Food: Never True Current Housing: I Have Housing Concerned About Future Housing: No Difficulty Paying Gas/Electric Bills: No Difficulty Paying for Meds: No Currently Unemployed: No Education: Bachelor's Degree Difficulty w/ Childcare or Family Care: No Living arrangements: alone Occupation/Education: occupation Gender identity (if verbalized by the patient): Female Spiritual care concerns: No Exam Narrative: GENERAL: Well-appearing, well-nourished, and in no acute distress. HEAD: Normocephalic, atraumatic. EYES: PERRLA and EOMI. ENT: Nares clear, no rhinorrhea or epistaxis. Mucous membranes moist. NECK: Supple. CHEST: Clear to auscultation. No respiratory distress. HEART: Regular rate and rhythm. No murmur heard. Normal peripheral pulses. ABDOMEN: Soft, nontender, nondistended, normal active bowel sounds. EXTREMITIES: Normal range of motion. No edema. SKIN: Warm, dry, no rash. NEURO: No focal deficits. Alert and oriented x3. PSYCH: Normal mood and affect. Course Vital Signs Vital signs: Vital Signs Temperature 36.2 C L 09/26/23 20:46 Pulse Rate 70 09/26/23 20:46 Respiratory Rate 18 09/26/23 20:46 Blood Pressure 145/89 H 09/26/23 20:46 Pulse Oximetry 100 09/26/23 20:46 Oxygen Delivery Room Air 09/26/23 20:46 Temperature 36.2 C L 09/26/23 20:46 Pulse Rate 70 09/26/23 20:46 Respiratory Rate 18 09/26/23 20:46 Blood Pressure 145/89 H 09/26/23 20:46 Pulse Oximetry 100 09/26/23 20:46 Oxygen Delivery Room Air 09/26/23 20:46 Medical Decision Making [facility] Narrative Medical decision making narrative: Differential diagnosis includes gastroenteritis, food poisoning gastritis, colitis, diverticulitis Patient has a
== END 2023-09-26 22:42 | disposition home or self-care (01) ==
PROVIDERS: Emergency Provider Emergency Medicine
DX: K52.9 Noninfective gastroenteritis and colitis, unspecified (principal); I10 Essential (primary) hypertension; E78.00 Pure hypercholesterolemia, unspecified; K21.9 Gastro-esophageal reflux disease without esophagitis
CPT/HCPCS: 36415; 80053; 83690; 85025; 93005; 96361; 96374; 99284; J2405; J7030